=== PATIENT | female | born 1945 | race American Indian/Alaskan Native ===

== ENCOUNTER 2018-09-14 00:33 | Emergency (ER) | payer MEDICAID, MEDICARE, OTHER ==
[~2018-09-14] VITALS: Ht 162.6 cm; Wt 63.6 kg
[2018-09-14] MEDS ORDERED: bupivacaine 0.25%/epinephrine 1:200,000 inj (contains preserv. MDV) IJ ONE (02:40)
[2018-09-14] MEDS ORDERED: LIDOcaine 1% 30ml preserv. free vial SQ STA (02:40)
[2018-09-14] MEDS ORDERED: HYDROcodone/acetaminophen 10/325mg tab PO ONE (02:50)
[2018-09-14 03:19] VITALS: BP 118/79
[2018-09-14] MEDS ORDERED: HYDR-4383 PO (04:01)
== END 2018-09-14 04:23 | disposition home or self-care (01) ==
LOC: ER 00:33
DX: S52.591A Other fractures of lower end of right radius, initial encounter for closed fracture (principal); S52.611A Displaced fracture of right ulna styloid process, initial encounter for closed fracture; Z79.899 Other long term (current) drug therapy; Z86.73 Personal history of transient ischemic attack (TIA), and cerebral infarction without residual deficits; W01.0XXA Fall on same level from slipping, tripping and stumbling without subsequent striking against object, initial encounter; Y93.89 Activity, other specified; Y92.89 Other specified places as the place of occurrence of the external cause; Y99.8 Other external cause status
CPT/HCPCS: 25605; 73100; 73110; 99284; J2001